=== PATIENT | female | born 1990 | race Caucasian/White ===

== ENCOUNTER 2016-10-04 04:59 | Emergency (ER) | payer OTHER ==
[~2016-10-04 04:59] MED LIST: /ANUSHCSU PR; /MOM400 PO; ACET500C PO; FERR325T3 PO; MOTR200T44 PO; PRENTAB66 PO; TYLE325T5 PO; VITA200016 PO; ZYRT10CA PO
--- NOTE | 2016-10-04 09:14 | EDDOCDS ---
Physician Documentation [facility] Name: Elida Jenkins Age: 26 yrs Sex: Female : 1990 Arrival Date: 10/04/2016 Time: 04:59 Bed 9 Private MD: Harman Ovalles MD Disposition: 10/04/16 08:23 Discharged to Home/Self Care. Impression: Acute pharyngitis. - Condition is Stable. - Discharge Instructions: Pharyngitis, [id number]. - Prescriptions for penicillin V potassium 500 mg Oral Tablet - take 1 tablet by ORAL route 4 times per day for 10 days; 40 tablet. - Medication Reconciliation, Local Pharmacy Hours form. - Follow up: Harman Ovalles; When: Call to arrange an appointment; Reason: Recheck today's complaints. - Problem is new. - Symptoms are unchanged. - Notes: You were evaluated in the emergency department for pharyngitis. You have been discharged with a prescription for an antibiotic as well as an inhaler. Pleaseschedule anappointment with Dr. Ovalles at your soonest convenience. Historical: - Allergies: liquid colace; SULFA (SULFONAMIDES); - Home Meds: 1. Vitamin D3 1,000 unit oral chew daily 2. Zyrtec 10 mg Oral tab 1 tab once daily - PMHx: none; - PSHx: brain tumor removed; left eye surgery; - Social history: Smoking status: Patient states was never smoker of tobacco. No barriers to communication noted, The patient speaks fluent [place]inean, Speaks appropriately for age. - Family history: Daughter has/had recent sore throat, similar symptoms recently. - : The pt / caregiver states he / she is not on anticoagulants. Home medication list is obtained from the patient. - Exposure Risk Screening:: None identified. 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 2 in. (157.48 cm); Pain 5/10; 09:12 BP 146 / 105; Pulse 98; Resp 18; Temp 98.6(O); Pulse Ox 100% ; Pain 5/10; hs1 05:30 Body Mass Index 23.78 (58.97 kg, 157.48 cm) ko2 MDM: 05:43 [facility] Payment Agreement was scanned into [employer] and attached to record. [facility] 06:41 Strep Screen, Nursing ordered. 07:09 Financial registration complete. pm4 07:30 GATS (NEGATIVE STREP SCREEN) Ordered. EDMS Signatures: Dispatcher [employer] EDMS Payton Kumar MD MD Funmilayo Oglesby RN RN hs1 Dalila Barroso RN RN ko2 Carey Baker [facility] Marylou Zabala DO DO jo4 Zheng Hansen, Reg Reg pm4 The chart was reviewed and I authenticate all verbal orders and agree with the evaluation and treatment provided.Attachments: 05:43 [facility] Payment Agreement [facility] MTDD
--- NOTE | 2016-10-04 09:14 | EDDOCDS ---
Nurse's Notes [facility] Name: Elida Jenkins Age: 26 yrs Sex: Female : 1990 Arrival Date: 10/04/2016 Time: 04:59 Bed 9 Private MD: Harman Ovalles MD Diagnosis: Acute pharyngitis Presentation: 10/04 05:26 Presenting complaint: Patient states: Sore throat since Tuesday, stuffy nose and ko2 hoarse voice. Risk factors: Stridor is not present. Drooling is not present. Shortness of breath is not present. Cellulitis is not present. Suicide/Homicide risk assessment- the patient denies having any suicidal and/or homicidal ideations and does not present with any other emotional, behavioral or mental health complaints. 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 Transition of care: patient was not received from another setting of care. 05:26 Acuity: STEFANIE Level 4 ko2 05:26 Method Of Arrival: Walkin/Carried/Asstd ko2 05:36 Adult Sepsis Screening: The patient does not have new or worsening altered mentation. ko2 Patient's respiratory rate is less than 22. Systolic blood pressure is greater than 100. Patient has a qSOFA score of 0- Negative Sepsis Screen. Triage Assessment: 05:29 General: Appears in no apparent distress. Pain: Location: neck Pain currently is 5 out ko2 of 10 on a pain scale. HIV screening NA for this visit Offered previously. Neurological: Level of Consciousness is awake, alert. EENT: Reports pain all the time and worse with swawllowing. Respiratory: Airway is patent Respiratory effort is even, unlabored. Derm: Skin is normal. 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 Vitamin D3 1,000 unit oral chew daily 2. Zyrtec 10 mg Oral tab 1 tab once daily - PMHx: none; - PSHx: brain tumor removed; left eye surgery; - Social history: Smoking status: Patient states was never smoker of tobacco. No barriers to communication noted, The patient speaks fluent [place] Islander, Speaks appropriately for age. - Family history: Daughter has/had recent sore throat, similar symptoms recently. - : The pt / caregiver states he / she is not on anticoagulants. Home medication list is obtained from the patient. - Exposure Risk Screening:: None identified. Screenin:19 Screening information is obtained from the patient. Fall risk: No risks identified. ko2 Assistance ADL's: requires no assistance with activities of daily living. Abuse/DV Screen: The patient / caregiver reports he/she is: not in a situation that causes fear, pain or injury. Nutritional screening: No deficits noted. Advance Directives: Currently, there is no health care proxy. There is no active DNR order. There is no living will. There is no Power of Greige Goods Examiner. home support is adequate. Assessment: 06:19 General: Appears in no apparent distress, Behavior is appropriate for age, cooperative. ko2 Pain: Location: neck. Neurological: Level of Consciousness is awake, alert. EENT: Throat is reddened. Cardiovascular: Heart tones S1 S2 present. Respiratory: Airway is patent Respiratory effort is even, unlabored, Respiratory pattern is regular, symmetrical, Breath sounds are clear bilaterally. Derm: Skin is pink, warm & dry. normal. 07:33 General: Appears in no apparent distress, Behavior is appropriate for age, cooperative. hs1 Neurological: Level of Consciousness is awake, alert, obeys commands, Facial droop on left, normal for patient at this time . Respiratory: Airway is patent Respiratory effort is even, unlabored, Respiratory pattern is regular, symmetrical. Derm: Skin is pink, warm & dry. normal. 09:13 General: Appears in no apparent distress, comfortable, Behavior is appropriate for age, hs1 cooperative. Pain: Denies pain. Cardiovascular: No deficits noted. Respiratory: Airway is patent Respiratory effort is even, unlabored, Respiratory pattern is regular, symmetrical, Breath sounds are clear bilaterally. Derm: Skin is pink, warm & dry. normal. Vital Signs: 05:30 BP 148 / 98 (man/); Pulse 94; Resp 18; Temp 98.5; Pulse Ox 97% ; Weight 58.97 kg; ko2 Height 5 ft. 2 in. (157.48 cm); Pain 5/10; 09:12 BP 146 / 105; Pulse 98; Resp 18; Temp 98.6(O); Pulse Ox 100% ; Pain 5/10; hs1 05:30 Body Mass Index 23.78 (58.97 kg, 157.48 cm) ko2 Vitals: 05:30 Log In Time: October 04, 2016 at 04:59. ko2 07:29 Strep Screen is obtained and tested: Negative, a GATSNEG culture is ordered in [facility] and sent. ED Course: 05:01 Patient visited by Zheng Hansen Reg. pm4 05:01 Harman Ovalles is Private Physician. pm4 05:01 Patient moved to Waiting pm4 05:27 Triage Initiated ko2 05:43 [facility] Payment Agreement was scanned into [email or web address] and attached to record. slh 06:10 Dalila Barroso,SAADIA is Primary Nurse. sep 06:10 Patient moved to 9 sep 06:17 Patient visited by Cherelle Echeverria RN. sep 06:54 Marylou Zabala DO is PHCP. jo4 06:54 Payton Kumar MD is Attending Physician. jo4 07:00 Patient visited by Marylou Zabala DO. jo4 07:00 Patient visited by Marylou Zabala DO. jo4 07:07 Primary Nurse role handed off by Dalila Barroso,SAADIA deg 07:32 Patient visited by Funmilayo Oglesby RN. hs1 07:33 GATS (NEGATIVE STREP SCREEN) Sent. hs1 07:34 The patient / caregiver is instructed regarding the plan of care and ED course. hs1 08:18 Patient visited by Funmilayo Oglesby RN. hs1 08:22 Harman Ovalles is Referral Physician. jo4 09:04 Maritza Tobar,SAADIA is Primary Nurse. ead 09:12 No IV's were initiated during this patient's visit. No procedures done that require hs1 assistance. Order Results: There are currently no results for this order. Outcome: 08:23 Discharge ordered by Provider. jo4 09:12 Discharge Assessment: Patient awake, alert and oriented x 3. No cognitive and/or hs1 functional deficits noted. Patient verbalized understanding of disposition instructions. patient administered narcotics - no. The following High Risk Discharge criteria are identified: None. Discharged to home ambulatory. Condition: stable. Discharge instructions given to patient, Instructed on discharge instructions, follow up and referral plans. medication usage, Demonstrated understanding of instructions, medications, Pt was receptive of discharge instructions/ teaching. Prescriptions given X 1. No special radiology studies were completed. Property sent home with patient. 09:13 Patient left the ED. hs1 Signatures: Rachel Oakley, Christmas Tree Farm Manager Unit deg Juwan, SAADIA Jones RN, Debra RN Funmilayo Hopkins RN RN hs1 Maritza TobarRN Dalila Gregg RN RN ko2 Carey Baker Jane, DO DO jo4 Zheng Hansen, Reg Reg pm4 MTDD
--- NOTE | 2016-10-06 10:15 | EDDOCDS ---
Nurse's Notes [facility] Name: Elida Jenkins Age: 26 yrs Sex: Female : 1990 Arrival Date: 10/04/2016 Time: 04:59 Bed 9 Private MD: Harman Ovalles MD Diagnosis: Acute pharyngitis Presentation: 10/04 05:26 Presenting complaint: Patient states: Sore throat since Tuesday, stuffy nose and ko2 hoarse voice. Risk factors: Stridor is not present. Drooling is not present. Shortness of breath is not present. Cellulitis is not present. Suicide/Homicide risk assessment- the patient denies having any suicidal and/or homicidal ideations and does not present with any other emotional, behavioral or mental health complaints. Status: Patient is not a service attendant or dependent. Transition of care: patient was not received from another setting of care. 05:26 Acuity: STEFANIE Level 4 ko2 05:26 Method Of Arrival: Walkin/Carried/Asstd ko2 05:36 Adult Sepsis Screening: The patient does not have new or worsening altered mentation. ko2 Patient's respiratory rate is less than 22. Systolic blood pressure is greater than 100. Patient has a qSOFA score of 0- Negative Sepsis Screen. Triage Assessment: 05:29 General: Appears in no apparent distress. Pain: Location: neck Pain currently is 5 out ko2 of 10 on a pain scale. HIV screening NA for this visit Offered previously. Neurological: Level of Consciousness is awake, alert. EENT: Reports pain all the time and worse with swawllowing. Respiratory: Airway is patent Respiratory effort is even, unlabored. Derm: Skin is normal. 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 Vitamin D3 1,000 unit oral chew daily 2. Zyrtec 10 mg Oral tab 1 tab once daily - PMHx: none; - PSHx: brain tumor removed; left eye surgery; - Social history: Smoking status: Patient states was never smoker of tobacco. No barriers to communication noted, The patient speaks fluent [place], Speaks appropriately for age. - Family history: Daughter has/had recent sore throat, similar symptoms recently. - : The pt / caregiver states he / she is not on anticoagulants. Home medication list is obtained from the patient. - Exposure Risk Screening:: None identified. Screenin:19 Screening information is obtained from the patient. Fall risk: No risks identified. ko2 Assistance ADL's: requires no assistance with activities of daily living. Abuse/DV Screen: The patient / caregiver reports he/she is: not in a situation that causes fear, pain or injury. Nutritional screening: No deficits noted. Advance Directives: Currently, there is no health care proxy. There is no active DNR order. There is no living will. There is no Power of County Commissioner. home support is adequate. Assessment: 06:19 General: Appears in no apparent distress, Behavior is appropriate for age, cooperative. ko2 Pain: Location: neck. Neurological: Level of Consciousness is awake, alert. EENT: Throat is reddened. Cardiovascular: Heart tones S1 S2 present. Respiratory: Airway is patent Respiratory effort is even, unlabored, Respiratory pattern is regular, symmetrical, Breath sounds are clear bilaterally. Derm: Skin is pink, warm & dry. normal. 07:33 General: Appears in no apparent distress, Behavior is appropriate for age, cooperative. hs1 Neurological: Level of Consciousness is awake, alert, obeys commands, Facial droop on left, normal for patient at this time . Respiratory: Airway is patent Respiratory effort is even, unlabored, Respiratory pattern is regular, symmetrical. Derm: Skin is pink, warm & dry. normal. 09:13 General: Appears in no apparent distress, comfortable, Behavior is appropriate for age, hs1 cooperative. Pain: Denies pain. Cardiovascular: No deficits noted. Respiratory: Airway is patent Respiratory effort is even, unlabored, Respiratory pattern is regular, symmetrical, Breath sounds are clear bilaterally. Derm: Skin is pink, warm & dry. normal. Vital Signs: 05:30 BP 148 / 98 (man/); Pulse 94; Resp 18; Temp 98.5; Pulse Ox 97% ; Weight 58.97 kg; ko2 Height 5 ft. 2 in. (157.48 cm); Pain 5/10; 09:12 BP 146 / 105; Pulse 98; Resp 18; Temp 98.6(O); Pulse Ox 100% ; Pain 5/10; hs1 05:30 Body Mass Index 23.78 (58.97 kg, 157.48 cm) ko2 Vitals: 05:30 Log In Time: October 04, 2016 at 04:59. ko2 07:29 Strep Screen is obtained and tested: Negative, a GATSNEG culture is ordered in [facility] and sent. ED Course: 05:01 Patient visited by Zheng Hansen Reg. pm4 05:01 Harman Ovalles is Private Physician. pm4 05:01 Patient moved to Waiting pm4 05:27 Triage Initiated ko2 05:43 [facility] Payment Agreement was scanned into [employer] and attached to record. slh 06:10 Dalila Barroso,SAADIA is Primary Nurse. sep 06:10 Patient moved to 9 sep 06:17 Patient visited by Cherelle Echeverria RN. sep 06:54 Marylou Zabala DO is PHCP. jo4 06:54 Payton Kumar MD is Attending Physician. jo4 07:00 Patient visited by Marylou Zabala DO. jo4 07:00 Patient visited by Marylou Zabala DO. jo4 07:07 Primary Nurse role handed off by Dalila Barroso,SAADIA deg 07:32 Patient visited by Funmilayo Oglesby RN. hs1 07:33 GATS (NEGATIVE STREP SCREEN) Sent. hs1 07:34 The patient / caregiver is instructed regarding the plan of care and ED course. hs1 08:18 Patient visited by Funmilayo Oglesby RN. hs1 08:22 Harman Ovalles is Referral Physician. jo4 09:04 Maritza Tobar,SAADIA is Primary Nurse. ead 09:12 No IV's were initiated during this patient's visit. No procedures done that require hs1 assistance. 10/05 11:02 T-Sheet-- Draft Copy was scanned into [employer] and attached to record. gb 14:16 T-Sheet-- Draft Copy was scanned into [employer] and attached to record. gb Order Results: Lab Order: GATS (NEGATIVE STREP SCREEN); SPEC'M 10/04/16 07:31 Test: GATS CULTURE (NEG STREP SCR); Value: GATS RESULT NEGATIVE FOR STREP PYOGENES (GROUP A); Status: F Test: GATS CULTURE (NEG STREP SCR); Value: <EXTERNAL COMMENT eCWMed> FULL REPORT IN LAB NOTES (eCW and Medent).; Status: F Outcome: 10/04 08:23 Discharge ordered by Provider. jo4 09:12 Discharge Assessment: Patient awake, alert and oriented x 3. No cognitive and/or hs1 functional deficits noted. Patient verbalized understanding of disposition instructions. patient administered narcotics - no. The following High Risk Discharge criteria are identified: None. Discharged to home ambulatory. Condition: stable. Discharge instructions given to patient, Instructed on discharge instructions, follow up and referral plans. medication usage, Demonstrated understanding of instructions, medications, Pt was receptive of discharge instructions/ teaching. Prescriptions given X 1. No special radiology studies were completed. Property sent home with patient. 09:13 Patient left the ED. hs1 Signatures: Rachel Oakley, Surface Mount Technology Operator Unit deg Cherelle Echeverria RN Rosa Morse RN RN dls Barnhardt, Gloria, Reg Reg gb Funmilayo Oglesby RN RN hs1 Maritza Tobar,RN Dalila Gregg RN RN ko2 Carey Baker Jane, DO DO jo4 Zheng Hansen, Reg Reg pm4 Chart Complete GREG
--- NOTE | 2016-10-06 10:15 | EDDOCDS ---
Physician Documentation [facility] Name: Elida Jenkins Age: 26 yrs Sex: Female : 1990 Arrival Date: 10/04/2016 Time: 04:59 Bed 9 Private MD: Harman Ovalles MD Disposition: 10/04/16 08:23 Discharged to Home/Self Care. Impression: Acute pharyngitis. - Condition is Stable. - Discharge Instructions: Pharyngitis, [id number]. - Prescriptions for penicillin V potassium 500 mg Oral Tablet - take 1 tablet by ORAL route 4 times per day for 10 days; 40 tablet. - Medication Reconciliation, Local Pharmacy Hours form. - Follow up: Harman Ovalles; When: Call to arrange an appointment; Reason: Recheck today's complaints. - Problem is new. - Symptoms are unchanged. - Notes: You were evaluated in the emergency department for pharyngitis. You have been discharged with a prescription for an antibiotic as well as an inhaler. Pleaseschedule anappointment with Dr. Ovalles at your soonest convenience. Historical: - Allergies: liquid colace; SULFA (SULFONAMIDES); - Home Meds: 1. Vitamin D3 1,000 unit oral chew daily 2. Zyrtec 10 mg Oral tab 1 tab once daily - PMHx: none; - PSHx: brain tumor removed; left eye surgery; - Social history: Smoking status: Patient states was never smoker of tobacco. No barriers to communication noted, The patient speaks fluent [place], Speaks appropriately for age. - Family history: Daughter has/had recent sore throat, similar symptoms recently. - : The pt / caregiver states he / she is not on anticoagulants. Home medication list is obtained from the patient. - Exposure Risk Screening:: None identified. 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 2 in. (157.48 cm); Pain 5/10; 09:12 BP 146 / 105; Pulse 98; Resp 18; Temp 98.6(O); Pulse Ox 100% ; Pain 5/10; hs1 05:30 Body Mass Index 23.78 (58.97 kg, 157.48 cm) ko2 MDM: 05:43 [facility] Payment Agreement was scanned into [employer] and attached to record. [facility] 06:41 Strep Screen, Nursing ordered. 07:09 Financial registration complete. pm4 07:30 GATS (NEGATIVE STREP SCREEN) Ordered. EDMS 10/05 11:02 T-Sheet-- Draft Copy was scanned into [employer] and attached to record. gb 14:16 T-Sheet-- Draft Copy was scanned into [employer] and attached to record. gb Signatures: Dispatcher [employer] EDIL Payton Kumar MD MD ml Antonette Smith, Reg Reg gb Funmilayo Oglesby RN RN hs1 Dalila Barroso RN RN ko2 Carey Baker [facility] Marylou Zabala, DO jo4 Zheng Hansen, Reg Reg pm4 The chart was reviewed and I authenticate all verbal orders and agree with the evaluation and treatment provided.Attachments: 10/04 05:43 [facility] Payment Agreement [facility] 14:16 T-Sheet-- Draft Copy gb Chart Complete MTDD
--- NOTE | 2016-10-06 10:15 | EDDOCDS ---
Physician Documentation [facility] Name: Elida Jenkins Age: 26 yrs Sex: Female : 1990 Arrival Date: 10/04/2016 Time: 04:59 Bed 9 Private MD: Harman Ovalles MD Disposition: 10/04/16 08:23 Discharged to Home/Self Care. Impression: Acute pharyngitis. - Condition is Stable. - Discharge Instructions: Pharyngitis, [id number]. - Prescriptions for penicillin V potassium 500 mg Oral Tablet - take 1 tablet by ORAL route 4 times per day for 10 days; 40 tablet. - Medication Reconciliation, Local Pharmacy Hours form. - Follow up: Harman Ovalles; When: Call to arrange an appointment; Reason: Recheck today's complaints. - Problem is new. - Symptoms are unchanged. - Notes: You were evaluated in the emergency department for pharyngitis. You have been discharged with a prescription for an antibiotic as well as an inhaler. Pleaseschedule anappointment with Dr. Ovalles at your soonest convenience. Historical: - Allergies: liquid colace; SULFA (SULFONAMIDES); - Home Meds: 1. Vitamin D3 1,000 unit oral chew daily 2. Zyrtec 10 mg Oral tab 1 tab once daily - PMHx: none; - PSHx: brain tumor removed; left eye surgery; - Social history: Smoking status: Patient states was never smoker of tobacco. No barriers to communication noted, The patient speaks fluent Citizen Of [place], Speaks appropriately for age. - Family history: Daughter has/had recent sore throat, similar symptoms recently. - : The pt / caregiver states he / she is not on anticoagulants. Home medication list is obtained from the patient. - Exposure Risk Screening:: None identified. 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 2 in. (157.48 cm); Pain 5/10; 09:12 BP 146 / 105; Pulse 98; Resp 18; Temp 98.6(O); Pulse Ox 100% ; Pain 5/10; hs1 05:30 Body Mass Index 23.78 (58.97 kg, 157.48 cm) ko2 MDM: 05:43 [facility] Payment Agreement was scanned into [employer] and attached to record. [facility] 06:41 Strep Screen, Nursing ordered. 07:09 Financial registration complete. pm4 07:30 GATS (NEGATIVE STREP SCREEN) Ordered. EDMS 10/05 11:02 T-Sheet-- Draft Copy was scanned into [employer] and attached to record. gb 14:16 T-Sheet-- Draft Copy was scanned into [employer] and attached to record. gb Signatures: Dispatcher [employer] EDMT Payton Kumar MD MD ml Antonette Smith, Reg Reg gb Funmilayo Oglesby RN RN hs1 Dalila Barroso RN RN ko2 Carey Baker [facility] Marylou Zabala, DO jo4 Zheng Hansen, Reg Reg pm4 The chart was reviewed and I authenticate all verbal orders and agree with the evaluation and treatment provided.Attachments: 10/04 05:43 [facility] Payment Agreement [facility] 14:16 T-Sheet-- Draft Copy gb Chart Complete MTDD
== END 2016-10-04 09:13 | disposition home or self-care (01) ==
LOC: M ED 04:59
DX: J06.9 Acute upper respiratory infection, unspecified (principal); Z79.899 Other long term (current) drug therapy; Z88.2 Allergy status to sulfonamides; Z91.09 Other allergy status, other than to drugs and biological substances

== ENCOUNTER → 2017-01-13 | Outpatient (REF) | payer OTHER | LOC: M LAB REF 10:26 | PROVIDERS: ATTEND Physician Assistant | DX: R30.0 Dysuria (principal) ==

== ENCOUNTER → 2017-03-10 | Outpatient (REF) | payer OTHER | LOC: M SFHCPLAZ 16:02 | PROVIDERS: ATTEND Nurse Practitioner Family | DX: N89.8 Other specified noninflammatory disorders of vagina (principal) ==

== ENCOUNTER → 2017-05-14 | Outpatient (REF) | payer OTHER | LOC: M LAB REF 15:41 | PROVIDERS: ATTEND Physician Assistant | DX: N39.0 Urinary tract infection, site not specified (principal) ==

== ENCOUNTER → 2017-06-26 | Outpatient (REF) | payer OTHER | LOC: M LAB REF 09:27 | PROVIDERS: ATTEND Physician Assistant | DX: J06.9 Acute upper respiratory infection, unspecified (principal) ==

== ENCOUNTER → 2017-07-28 | Outpatient (REF) | payer OTHER ==
[2017-07-28 18:31] LABS: ANION GAP 7 MEQ/L (8-16); BLOOD UREA NITROGEN 10 MG/DL (7-18); CALCIUM LEVEL 8.7 MG/DL (8.5-10.1); CARBON DIOXIDE LEVEL 27 MEQ/L (21-32); CHLORIDE LEVEL 107 MEQ/L (98-107); CREATININE FOR GFR 0.64 MG/DL (0.55-1.02); FREE T4 0.81 NG/DL (0.76-1.46); GLOMERULAR FILTRATION RATE > 60.0 (>60); GLUCOSE, FASTING 81 MG/DL (70-105); POTASSIUM SERUM 4.1 MEQ/L (3.5-5.1); SODIUM LEVEL 141 MEQ/L (136-145)
== END ==
LOC: M SFHCPLAZ 13:49
PROVIDERS: ATTEND Nurse Practitioner Family
DX: I10 Essential (primary) hypertension (principal); F41.9 Anxiety disorder, unspecified; E55.9 Vitamin D deficiency, unspecified

== ENCOUNTER → 2017-10-08 | Outpatient (CLI) | payer OTHER ==
[2017-10-08 16:51] LABS: BLOOD UREA NITROGEN 13 MG/DL (7-18)
[2017-10-08 16:51] LABS: CREATININE FOR GFR 0.77 MG/DL (0.55-1.02); GLOMERULAR FILTRATION RATE > 60.0 (>60)
== END ==
LOC: M ADAMS 15:31
DX: I10 Essential (primary) hypertension (principal)
CPT/HCPCS: 82565